=== PATIENT | male | born 1995 | race Caucasian/White ===

== ENCOUNTER 2017-12-07 17:30 | Emergency (ER) | payer OTHER ==
[~2017-12-07] VITALS: Ht 165.1 cm; Wt 61.2 kg
[2017-12-07] MEDS ORDERED: DEPAKOTE ER500 MG PO (17:35)
[2017-12-07] MEDS ORDERED: VISTARIL25 MG PO (17:35)
[2017-12-07] MEDS ORDERED: RISPERDAL0.25 MG PO (17:36)
[2017-12-07] MEDS ORDERED: TEMAZEPAM30 MG PO (17:36)
== END 2017-12-07 20:13 | disposition home or self-care (01) ==
LOC: ER 17:30
DX: T78.49XA Other allergy, initial encounter (principal); R21 Rash and other nonspecific skin eruption

== ENCOUNTER 2017-12-09 20:23 | Emergency (ER) | payer OTHER ==
[~2017-12-09] VITALS: Ht 167.6 cm; Wt 61.2 kg
[~2017-12-09 20:23] MED LIST: DEPAKOTE ER500 MG PO; RISPERDAL0.25 MG PO; TEMAZEPAM30 MG PO; VISTARIL25 MG PO
== END 2017-12-09 22:09 | disposition home or self-care (01) ==
LOC: ER 20:23
DX: T78.49XA Other allergy, initial encounter (principal); R21 Rash and other nonspecific skin eruption

== ENCOUNTER 2017-12-18 20:56 | Emergency (ER) | payer OTHER ==
[~2017-12-18] VITALS: Ht 167.6 cm; Wt 70.3 kg
[2017-12-18] MEDS ORDERED: BENADRYL25 MG (21:23)
== END 2017-12-18 22:05 | disposition home or self-care (01) ==
LOC: ER 20:56
DX: T78.1XXA Other adverse food reactions, not elsewhere classified, initial encounter (principal); R21 Rash and other nonspecific skin eruption

== ENCOUNTER 2022-04-08 15:17 | Outpatient (CLI) | payer OTHER ==
[~2022-04-08 15:17] MED LIST changes: +BENADRYL25 MG
== END 2022-04-08 15:22 | disposition home or self-care (01) ==
LOC: RAD 15:17
PROVIDERS: ATTEND General Practice
DX: I11.9 Hypertensive heart disease without heart failure (principal)

== ENCOUNTER 2022-08-25 11:23 | Emergency (ER) | payer OTHER ==
[~2022-08-25] VITALS: Ht 160 cm; Wt 61.2 kg
[2022-08-25] MEDS ORDERED: AMOX-CLAV 875-1 EACH PO (12:59)
[2022-08-25] MEDS ORDERED: NASAL MIST126 ML (13:23)
== END 2022-08-25 13:26 | disposition home or self-care (01) ==
LOC: ER 11:23
DX: S61.214A Laceration without foreign body of right ring finger without damage to nail, initial encounter (principal); W26.0XXA Contact with knife, initial encounter; Y93.89 Activity, other specified; Y92.89 Other specified places as the place of occurrence of the external cause; Y99.8 Other external cause status

== ENCOUNTER 2022-08-31 14:41 | Emergency (ER) | payer OTHER ==
[~2022-08-31] VITALS: Ht 165.1 cm; Wt 61.2 kg
[~2022-08-31 14:41] MED LIST changes: +AMOX-CLAV 875-1 EACH PO; +NASAL MIST126 ML
== END 2022-08-31 17:17 | disposition home or self-care (01) ==
LOC: ER 14:41
DX: Z48.02 Encounter for removal of sutures (principal)